=== PATIENT | male | born 1960 | race Two or more races ===

== ENCOUNTER 2017-10-17 17:33 | Emergency (ER) | payer MEDICAID ==
[~2017-10-17] VITALS: Ht 175.3 cm; Wt 65.8 kg
[2017-10-17 17:35] VITALS: BP 135/75
[2017-10-17] MEDS ORDERED: IBUPROFEN 600 MG TABLET PO ONE (18:05)
[2017-10-17] MEDS ORDERED: LIDOCAINE 1%-EPI 1:100,000 20 ML VIAL ONE (18:05)
[2017-10-17] MEDS ORDERED: TDAP [DIPH/PERTUSSIS/TET] 0.5 ML VIAL IM ONE (18:05)
[2017-10-17] MEDS: IBUPROFEN 600 MG TABLET PO ONE (18:13)
[2017-10-17] MEDS: TDAP [DIPH/PERTUSSIS/TET] 0.5 ML VIAL IM ONE (18:13)
[2017-10-17] MEDS: LIDOCAINE HCL/PF 1% 30 ML VIAL TP ONE (18:13)
--- NOTE | 2017-10-17 19:14 | NUR ---
received report from gaston Calixto for tiffanie.
== END 2017-10-17 20:02 | disposition home or self-care (01) ==
LOC: ER 17:45
DX: S01.112A Laceration without foreign body of left eyelid and periocular area, initial encounter (principal); S20.212A Contusion of left front wall of thorax, initial encounter; S40.212A Abrasion of left shoulder, initial encounter; S50.312A Abrasion of left elbow, initial encounter; Z90.49 Acquired absence of other specified parts of digestive tract; V00.831A Fall from motorized mobility scooter, initial encounter; Y93.89 Activity, other specified; Y92.89 Other specified places as the place of occurrence of the external cause; Y99.8 Other external cause status
CPT/HCPCS: 71100-TC; 90715; A4606; A6402; A6403; J3490; Z7610